=== PATIENT | male | born 1995 | race Caucasian/White ===

== ENCOUNTER 2022-05-02 08:43 | Emergency (ER) | payer OTHER ==
[~2022-05-02] VITALS: Ht 167.6 cm; Wt 91.0 kg
[2022-05-02 09:45] VITALS: BP 128/88
[2022-05-02] MEDS ORDERED: IBUPROFEN 400MG TABLET PO ONE (09:45)
[2022-05-02] MEDS ORDERED: IBUP-2028 MT (11:03)
== END 2022-05-02 11:19 | disposition home or self-care (01) ==
LOC: ER 08:43
DX: M25.512 Pain in left shoulder (principal); W01.0XXA Fall on same level from slipping, tripping and stumbling without subsequent striking against object, initial encounter; Y93.89 Activity, other specified; Y92.89 Other specified places as the place of occurrence of the external cause; Y99.8 Other external cause status
CPT/HCPCS: 73030; 99283